=== PATIENT | male | born 1950 | race Caucasian/White ===

== ENCOUNTER 2017-12-31 11:20 | Observation (INO) | payer MEDICARE, BC ==
[2017-12-31] MEDS ORDERED: ASPIRIN 81 MG TABLET, CHEWABLE PO ONE (11:49)
--- NOTE | 2017-12-31 11:51 | ER Document Report ---
ED Medical Screen (RME) - General Chief Complaint: Chest Pain Stated Complaint: CHEST PAIN Time Seen by Provider: 12/31/17 11:49 Notes: 67 years old male with a history of stents placed on the posterior descending artery 2017 had a stress test done early part of this year, reported as normal. 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 Since then did not have any more pain. The pain was not associated with any left arm numbness tingling sensation nausea vomiting palpitation or diaphoresis. But he got frightened therefore came to the ED. Currently feeling comfortable. Examination is normal TRAVEL OUTSIDE OF THE [place] IN LAST 30 DAYS: No - Related Data Allergies/Adverse Reactions: No Known Allergies Allergy (Verified 12/31/17 11:21) Past Medical History - Past Medical History Cardiac Medical History: Reports: Hx Hypertension Past Surgical History: Reports: Hx Orthopedic Surgery - R shoulder - Immunizations Hx Diphtheria, Pertussis, Tetanus Vaccination: Yes Physical Exam - Vital signs Vitals: Temp Pulse Resp BP Pulse Ox 98.1 F 60 16 142/72 H 97 12/31/17 11:35 12/31/17 11:35 12/31/17 11:35 12/31/17 11:35 12/31/17 11:35 Course - Vital Signs Vital signs: Temp Pulse Resp BP Pulse Ox 98.1 F 60 16 142/72 H 97 12/31/17 11:35 12/31/17 11:35 12/31/17 11:35 12/31/17 11:35 12/31/17 11:35 Doctor's Discharge - Discharge Referrals: FIONA COOLEY [Primary Care Provider] - Follow up as needed
[2017-12-31 12:38] LABS: ABSOLUTE EOSINOPHILS # (AUTO) 0.2 10^3/uL (0.0-0.6); ABSOLUTE LYMPHOCYTES (AUTO) 1.4 10^3/uL (0.5-4.7); ABSOLUTE MONOCYTES (AUTO) 0.5 10^3/uL (0.1-1.4); ABSOLUTE NEUT (AUTO) 3.5 10^3/uL (1.7-8.2); BASOPHILS % (AUTO) 0.5 % (0-2); EOSINOPHILS % (AUTO) 3.6 % (0-6); HEMATOCRIT 42.9 % (37.9-51.0); LYMPHOCYTES % (AUTO) 25.3 % (13-45); MEAN CORPUSCULAR HEMOGLOBIN 31.9 pg (27.0-33.4); MEAN CORPUSCULAR HGB CONC 34.9 g/dL (32.0-36.0); MEAN CORPUSCULAR VOLUME 91 fl (80-97); MONOCYTES % (AUTO) 8.9 % (3-13); PLATELET COUNT 208 10^3/uL (150-450); RED CELL DISTRIBUTION WIDTH 13.8 % (11.5-14.0); SEGMENTED NEUTROPHILS % (AUTO) 61.7 % (42-78); TOTAL CELLS COUNTED % (AUTO) 100 %; WHITE BLOOD COUNT 5.7 10^3/uL (4.0-10.5)
--- NOTE | 2017-12-31 12:43 | RADIOLOGY REPORT (SQ) ---
EXAM DESCRIPTION: CHEST SINGLE VIEW COMPLETED DATE/TIME: 12/31/2017 12:34 pm REASON FOR STUDY: Chest pain COMPARISON: None. EXAM PARAMETERS: NUMBER OF VIEWS: One view. TECHNIQUE: Single frontal radiographic view of the chest acquired. RADIATION DOSE: NA LIMITATIONS: None. FINDINGS: LUNGS AND PLEURA: No opacities, masses or pneumothorax. No pleural effusion. MEDIASTINUM AND HILAR STRUCTURES: No masses. Contour normal. HEART AND VASCULAR STRUCTURES: Heart normal in size. Normal vasculature. BONES: No acute findings. HARDWARE: None in the chest. OTHER: No other significant finding. IMPRESSION: NO ACUTE RADIOGRAPHIC FINDING IN THE CHEST. TECHNICAL DOCUMENTATION: JOB ID: [id number] [email or web address] All Rights Reserved Reading location - IP/workstation name: [email or web address]
[2017-12-31 12:57] LABS: ALANINE AMINOTRANSFERASE 32 U/L (21-72); ALKALINE PHOSPHATASE 148 U/L (38-126); ANION GAP 10 (5-19); ASPARTATE AMINO TRANSFERASE 25 U/L (17-59); BILIRUBIN,DIRECT 0.2 mg/dL (0.0-0.4); BILIRUBIN,TOTAL 0.5 mg/dL (0.2-1.3); BLOOD UREA NITROGEN 17 mg/dL (7-20); CALCIUM 8.8 mg/dL (8.4-10.2); CARBON DIOXIDE 26 mmol/L (22-30); CHLORIDE 105 mmol/L (98-107); CREATINE KINASE 84 U/L (55-170); GLUCOSE 152 mg/dL (75-110); POTASSIUM 4.1 mmol/L (3.6-5.0); SODIUM 140.8 mmol/L (137-145); TOTAL PROTEIN 6.4 g/dL (6.3-8.2)
--- NOTE | 2017-12-31 12:58 | EKG REPORT ---
SEVERITY:- ABNORMAL ECG - SINUS RHYTHM LEFT ANTERIOR FASCICULAR BLOCK. LEFT VENTRICULAR HYPERTROPHY : Confirmed by: Jase Arora MD 31-Dec-2017 12:57:50
[2017-12-31 13:08] LABS: CREATINE KINASE MB 1.98 ng/mL (<4.55)
[2017-12-31 13:09] LABS: TROPONIN I < 0.012 ng/mL
--- NOTE | 2017-12-31 13:23 | ER Document Report ---
ED Cardiac - General Chief Complaint: Chest Pain Stated Complaint: CHEST PAIN Time Seen by Provider: 12/31/17 11:49 Mode of Arrival: Ambulatory Information source: Patient Notes: This is a 67-year-old man with known coronary artery disease with 2 stents placed in May 2016 ([place]) who presents to the emergency room after retrosternal chest tightness which was severe in nature and relieved by nitroglycerin. Patient states he was chest pain-free by the time the EKG done here. TRAVEL OUTSIDE OF THE [place] IN LAST 30 DAYS: No - HPI Patient complains to provider of: Chest pain Use of: denies: Alcohol, Amphetamines, Bath salts, Caffeine, Cocaine, Decongestants, Other Is the pain a: New problem Quality of pain: Tightness Severity now: Mild Severity at worst: Mild Pain level currently: Denies Chest pain precipitating factors: Physical Exertion Cardiac risk factors: Hypertension Positive cardiac history: Yes Associated symptoms: denies: Back pain, Cool extremities, Palpitations Exacerbated by: Denies Relieved by: Nothing Similar symptoms previously: No Recently seen / treated by doctor: No - Related Data Allergies/Adverse Reactions: No Known Allergies Allergy (Verified 12/31/17 11:21) Past Medical History - General Information source: Patient - Social History Smoking Status: Never Smoker Cigarette use (# per day): No Chew tobacco use (# tins/day): No Frequency of alcohol use: Occasional Drug Abuse: None Lives with: Family Family History: Reviewed & Not Pertinent Patient has suicidal ideation: No Patient has homicidal ideation: No - Past Medical History Cardiac Medical History: Reports: Hx Hypertension Renal/ Medical History: Denies: Hx Peritoneal Dialysis Past Surgical History: Reports: Hx Abdominal Surgery - colon resection, Hx Cardiac Catheterization - 2 stents 2016, Hx Orthopedic Surgery - R shoulder - Immunizations Hx Diphtheria, Pertussis, Tetanus Vaccination: Yes Hx Pneumococcal Vaccination: 12/15/13 Review of Systems - Review of Systems Constitutional: denies: Chills, Fever EENT: No symptoms reported Cardiovascular: See HPI Respiratory: No symptoms reported Gastrointestinal: No symptoms reported Genitourinary: No symptoms reported Male Genitourinary: No symptoms reported Musculoskeletal: No symptoms reported Skin: No symptoms reported Hematologic/Lymphatic: No symptoms reported Neurological/Psychological: No symptoms reported Physical Exam - Vital signs Vitals: Temp Pulse Resp BP Pulse Ox 98.1 F 60 16 142/72 H 97 12/31/17 11:35 12/31/17 11:35 12/31/17 11:35 12/31/17 11:35 12/31/17 11:35 Notes: Physical exam: GENERAL: Patient is alert and oriented x3 in no acute distress. He denies chest pain at this time. HEAD: Atraumatic, normocephalic. EYES: Pupils equal round and reactive to light, extraocular movements intact, sclera anicteric, conjunctiva are normal. ENT: TMs normal, nares patent, oropharynx clear without exudates. Moist mucous membranes. NECK: Normal range of motion, supple without obvious mass or JVD. LUNGS: Breath sounds clear to auscultation bilaterally and equal. No wheezes rales or rhonchi. HEART: Regular rate and rhythm without murmurs, rubs or gallops. ABDOMEN: Soft, normoactive bowel sounds. No tenderness to palpation. No guarding, no rebound. No masses appreciated. EXTREMITIES: Normal range of motion, no pitting or edema. No clubbing or cyanosis. NEUROLOGICAL: Cranial nerves II through XII grossly intact. Normal speech, moving all extremities. PSYCH: Normal mood, normal affect. SKIN: Warm, Dry, normal turgor, no rashes or lesions noted. Course - Vital Signs Vital signs: Temp Pulse Resp BP Pulse Ox 98.1 F 63 15 136/57 H 98 12/31/17 16:32 12/31/17 16:32 12/31/17 16:32 12/31/17 16:32 12/31/17 16:32 - Laboratory Result Diagrams: 12/31/17 12:06 12/31/17 12:06 Laboratory results interpreted by me: 12/31/17 12:06 Glucose 152 H Alkaline Phosphatase 148 H - Diagnostic Test Radiology reviewed: Image reviewed, Reports reviewed - Chest x-ray is clear - EKG Interpretation by Me Rate: Normal Rhythm: NSR - EKG shows normal sinus rhythm with a ventricular rate of 61, no acute ST-T wave changes, patient does have an IVCD. Discharge - Discharge Clinical Impression: Chest pain Condition: Stable Disposition: ADMITTED OBSERVATION Admitting Provider: Hospitalist - Dr. Santana Unit Admitted: Telemetry
[2017-12-31] MEDS ORDERED: DEXTROSE 40% GEL 15 GM TUBE PO PRN ×2 (14:32)
[2017-12-31] MEDS ORDERED: DEXTROSE 50%-WATER 25 GM/50 ML DISP.SYRIN IV PRN ×2 (14:32)
[2017-12-31] MEDS ORDERED: GLUCAGON,HUMAN RECOMB 1 MG INJ SUBCUT PRN (14:32)
--- NOTE | 2017-12-31 15:54 | PDOC H&P ---
History of Present Illness Admission Date/PCP: 12/31/17 14:13 FIONA COOLEY History of Present Illness: YOANNA HUANG JR is a 67 year old male with a history of coronary artery disease which was diagnosed about a year and half ago and underwent cardiac catheterization and had 2 stents placed. 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 He was in his usual state of health until this afternoon. He had just delivered a pizza and was going back to get into his car when he felt a squeezing retrosternal discomfort. He said it was worse than any chest pain he had ever experienced before. It lasted for about 5 seconds and then stopped. It did not radiate. He said he took a nitroglycerin, but the pain had stopped before he even took a nitroglycerin. He felt like given his history he should come to be evaluated. He does not smoke. He takes one medication for hypertension. He is not diabetic. He said he had a stress test in the spring of this year that he said was normal. He said he also takes cholesterol medication but he is not sure of the name. His legal librarian is Dr. Rayne Torres in [facility]. Past Medical History Cardiac Medical History: Reports: Hypertension Past Surgical History Past Surgical History: Reports: Cardiac Catheterization - 2 stents 2017, Orthopedic Surgery - R shoulder Social History Smoking Status: Never Smoker - Advance Directive Resuscitation Status: Full Code Family History Family History: Reviewed & Not Pertinent Parental Family History Reviewed: Yes Children Family History Reviewed: Yes - Noncontributory Sibling(s) Family History Reviewed.: Yes - Noncontributory Medication/Allergy Home Medications: Atorvastatin Calcium [Lipitor 40 mg Tablet] 40 mg PO QHS 12/31/17 Metoprolol Succinate [Toprol XL 100 mg Tablet] 100 mg PO DAILY 12/31/17 Oxycodone HCl/Acetaminophen [Endocet 10-325 mg Tablet] 1 tab PO Q12HP PRN Allergies/Adverse Reactions: No Known Allergies Allergy (Verified 12/31/17 11:21) Review of Systems All systems: reviewed and no additional remarkable complaints except as stated - A 10 point review of systems was conducted with the patient was negative except as noted above in the HPI. Physical Exam Vital Signs: Temp Pulse Resp BP Pulse Ox 98.0 F 60 13 141/66 H 95 12/31/17 14:01 12/31/17 11:35 12/31/17 15:00 12/31/17 14:01 12/31/17 15:00 General appearance: PRESENT: no acute distress, cooperative, obese Head exam: PRESENT: atraumatic, normocephalic Eye exam: PRESENT: EOMI, PERRLA. ABSENT: scleral icterus Ear exam: PRESENT: normal external ear exam Mouth exam: PRESENT: moist, neck supple, tongue midline Throat exam: ABSENT: post pharyngeal erythema Neck exam: PRESENT: full ROM. ABSENT: lymphadenopathy, tenderness, thyromegaly Respiratory exam: PRESENT: clear to auscultation gema, unlabored. ABSENT: accessory muscle use, crackles, rhonchi, tachypnea, wheezes Cardiovascular exam: PRESENT: RRR, +S1, +S2. ABSENT: diastolic murmur, systolic murmur Pulses: PRESENT: normal radial pulses, normal dorsalis pedis pul Vascular exam: PRESENT: normal capillary refill GI/Abdominal exam: PRESENT: normal bowel sounds, soft. ABSENT: distended, guarding, rebound, tenderness Extremities exam: PRESENT: full ROM. ABSENT: pedal edema Musculoskeletal exam: PRESENT: ambulatory, normal inspection. ABSENT: deformity Neurological exam: PRESENT: alert, awake, oriented to person, oriented to place , oriented to time, CN II-XII grossly intact. ABSENT: motor sensory deficit Psychiatric exam: PRESENT: appropriate affect, normal mood Skin exam: PRESENT: dry, warm Results Impressions: Chest X-Ray 12/31/17 11:50 IMPRESSION: NO ACUTE RADIOGRAPHIC FINDING IN THE CHEST. Assessment & Plan - Diagnosis (1) Chest pain Qualifiers: Chest pain type: other chest pain Qualified Code(s): R07.89 - Other chest pain; R07.8 - Other chest pain Is this a current diagnosis for this admission?: Yes Plan: We will try to obtain his records from his legal librarian's office. He said his stress test was normal about 6 months ago. Because of his age and his medical history, his heart score is 4, indicating that he may benefit from noninvasive testing such as a stress test. His first troponin was negative. If unable to get his records and confirm that he did have a negative stress test about 6 months ago, we may be able to defer doing a stress test until he does not outpatient. He had one episode lasted about 5 seconds according to him, and resolved spontaneously. We will continue with aspirin and statin, and his antihypertensives. We will trend his troponins and keep him on telemetry. If his troponins are elevated, we might be able to consider him as a candidate for an outpatient stress test. - Time Time Spent: 50 to 70 Minutes
[2017-12-31] MEDS ORDERED: IBUPROFEN 600 MG TABLET PO SCH (18:00)
[2017-12-31] MEDS ORDERED: ACETAMINOPHEN 325 MG TABLET PO PRN (20:01)
[2018-01-01 06:51] LABS: ANION GAP 13 (5-19); BLOOD UREA NITROGEN 18 mg/dL (7-20); CALCIUM 9.1 mg/dL (8.4-10.2); CARBON DIOXIDE 21 mmol/L (22-30); CHLORIDE 107 mmol/L (98-107); GLUCOSE 121 mg/dL (75-110); POTASSIUM 4.2 mmol/L (3.6-5.0); SODIUM 141.4 mmol/L (137-145)
--- NOTE | 2018-01-01 07:30 | EKG REPORT ---
SEVERITY:- ABNORMAL ECG - SINUS RHYTHM LEFT ANTERIOR FASCICULAR BLOCK LEFT VENTRICULAR HYPERTROPHY : Confirmed by: Jase Arora MD 01-Jan-2018 07:29:45
[2018-01-01] MEDS ORDERED: LISINOPRIL 5 MG TABLET PO SCH (10:00)
[2018-01-01 10:07] VITALS: BP 136/57
[2018-01-01] MEDS ORDERED: IBUPROFEN 600 MG TABLET PO ONE (10:30)
[2018-01-01] MEDS ORDERED: IBUPROFEN 600 MG TABLET PO SCH (14:00)
--- NOTE | 2018-01-01 16:45 | PDOC DISCHARGE SUMMARY ---
General - Admit/Disc Date/PCP Admission Date/Primary Care Provider: 12/31/17 14:13 FIONA COOLEY Discharge Date: 01/01/18 - Discharge Diagnosis (1) Chest pain Is this a current diagnosis for this admission?: Yes Summary: Troponins remained negative. No EKG changes. I talked to his journeyman molder office that he had a normal stress test in July of this year. I got him a follow -up appointment in less than 2 weeks with his journeyman molder. - Additional Information Resuscitation Status: Full Code Discharge Diet: Cardiac Discharge Activity: Activity As Tolerated Home Medications: Atorvastatin Calcium [Lipitor 40 mg Tablet] 40 mg PO QHS 12/31/17 Metoprolol Succinate [Toprol XL 100 mg Tablet] 100 mg PO DAILY 12/31/17 Oxycodone HCl/Acetaminophen [Endocet 10-325 mg Tablet] 1 tab PO Q12HP PRN History of Present Illness History of Present Illness: YOANNA HUANG JR is a 67 year old male with a history of coronary artery disease which was diagnosed about a year and half ago and underwent cardiac catheterization and had 2 stents placed. 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 He was in his usual state of health until this afternoon. He had just delivered a pizza and was going back to get into his car when he felt a squeezing retrosternal discomfort. He said it was worse than any chest pain he had ever experienced before. It lasted for about 5 seconds and then stopped. It did not radiate. He said he took a nitroglycerin, but the pain had stopped before he even took a nitroglycerin. He felt like given his history he should come to be evaluated. He does not smoke. He takes one medication for hypertension. He is not diabetic. He said he had a stress test in the spring of this year that he said was normal. He said he also takes cholesterol medication but he is not sure of the name. His journeyman molder is Dr. Rayne Torres in [facility]. Hospital Course Hospital Course: He remained chest pain-free in the hospital. Troponins remain negative. Stress test was negative back in July according to his journeyman molder office. Given the atypical nature of the chest pain and had normal troponins and a negative stress test about 4-5 months ago, it was decided not to put him through another stress test. I did get him a follow-up appointment with his journeyman molder in about 2 weeks, and if any further workup needs to be done it can be done at that time. He was discharged today in good condition. Physical Exam Vital Signs: Temp Pulse Resp BP Pulse Ox 97.9 F 68 18 136/57 H 100 01/01/18 11:44 01/01/18 11:44 01/01/18 11:44 01/01/18 11:44 01/01/18 11:44 Intake & Output 12/31/17 01/01/18 01/02/18 06:59 06:59 06:59 Weight 102.3 kg General appearance: PRESENT: no acute distress, cooperative, obese Respiratory exam: PRESENT: clear to auscultation gema, unlabored. ABSENT: chest wall tenderness, rales, rhonchi, tachypnea, wheezes Cardiovascular exam: PRESENT: RRR, +S1, +S2. ABSENT: diastolic murmur, systolic murmur GI/Abdominal exam: PRESENT: normal bowel sounds, soft. ABSENT: guarding, rebound, tenderness Extremities exam: PRESENT: full ROM. ABSENT: pedal edema Musculoskeletal exam: PRESENT: ambulatory, normal inspection. ABSENT: deformity Neurological exam: PRESENT: alert, awake, oriented to person, oriented to place , oriented to time, normal gait Psychiatric exam: PRESENT: appropriate affect, normal mood Results Laboratory Results: 01/01/18 06:06 01/01/18 06:06 Sodium 141.4 Potassium 4.2 Chloride 107 Carbon Dioxide 21 L Anion Gap 13 BUN 18 Creatinine 0.68 Est GFR ( Amer) > 60 Est GFR (Non-Af Amer) > 60 Glucose 121 H Calcium 9.1 12/31/17 01/01/18 01/01/18 18:00 00:23 06:06 Troponin I < 0.012 < 0.012 < 0.012 Impressions: Chest X-Ray 12/31/17 11:50 IMPRESSION: NO ACUTE RADIOGRAPHIC FINDING IN THE CHEST. Qualifiers - * PATIENT BEING DISCHARGED WITH ANY OF THE FOLLOWING DIAGNOSIS: No
== END 2018-01-01 11:59 | disposition home or self-care (01) ==
LOC: ER 11:20 → EH 14:13 → 5 15:50
PROVIDERS: ADMIT Emergency Medicine; ATTEND Emergency Medicine
DX: R07.89 Other chest pain (principal); I25.10 Atherosclerotic heart disease of native coronary artery without angina pectoris; I10 Essential (primary) hypertension; I45.89 Other specified conduction disorders; Z95.5 Presence of coronary angioplasty implant and graft; Z79.899 Other long term (current) drug therapy; Z90.49 Acquired absence of other specified parts of digestive tract
CPT/HCPCS: 93005 ×2; 99285; 36415 ×2; 82553; 82550; 85025; 80048; 80053; 84484 ×2; 71045; 93010 ×2; G0378 ×3; A9270 ×3